=== PATIENT | female | born 1975 | race African-American/Black ===

== ENCOUNTER 2016-06-09 08:31 | Emergency (ER) ==
[2016-06-09] MEDS ORDERED: ASPIRIN PO STA (08:35)
--- NOTE | 2016-06-09 08:44 | EKG Report ---
Test Performed on : 06/09/2016 08:34:28 AM Test Reason : SR Blood Pressure : / mmHG Vent. Rate : 098 BPM Atrial Rate : 098 BPM P-R Int : 140 ms QRS Dur : 070 ms QT Int : 332 ms P-R-T Axes : 076 065 045 degrees QTc Int : 423 ms Normal sinus rhythm. Right atrial enlargement Borderline ECG When compared with ECG of 20-JAN-2016 07:58, Vent. rate has increased BY 40 BPM Criteria for Septal infarct are no longer present Unconfirmed Result
[2016-06-09 08:49] LABS: MANUAL DIFF NEEDED? NO
[2016-06-09 08:50] LABS: BASO% 0.7 % (0.0-0.8); EOS# 0.07 X1000 (0.0-0.7); EOS% 0.7 % (0.0-10.0); HEMATOCRIT 44.4 % (37.0-47.0); HEMOGLOBIN 15.3 g/dL (12.0-16.0); IMM GRAN# 0.02 X1000 (0.0-0.04); IMM GRAN% 0.2 % (0.0-0.5); LYMPH# 1.74 X1000 (1.2-3.4); LYMPH% 18.2 % (20.5-51.1); MCH 32.3 PG (27-31); MCHC 34.5 g/dL (33-37); MCV 93.9 FL (81-99); MONO# 0.71 X1000 (0.11-0.59); MONO% 7.4 % (1.7-9.3); NEUT% 72.8 % (42.2-75.2); PLT 256 X1000 (130-400); RBC 4.73 XMIL (4.2-5.4)
[2016-06-09] MEDS ORDERED: NS 1,000 ML IV ONE (08:59)
[2016-06-09] MEDS ORDERED: ZOFRAN IV ONE (08:59)
[2016-06-09] MEDS ORDERED: G.I. COCKTAIL PO ONE (08:59)
--- NOTE | 2016-06-09 09:07 | PROVIDER DOCUMENTATION ---
HPI-Abdominal Pain/GI Problem - General Chief Complaint: Cough Stated Complaint: CHEST PAIN Time Seen by Provider: 06/09/16 08:33 Source: patient Allergies/Adverse Reactions: Patient Allergies Allergy/AdvReac Type Severity Reaction Status Date / Time sumatriptan [From Imitrex] Allergy HIVES Verified 01/20/16 09:17 sumatriptan succinate * Allergy HIVES Verified 01/20/16 09:17 [From Imitrex] ketorolac tromethamine * AdvReac HIVES Verified 01/20/16 09:17 [From Toradol] Home Medications: Home Medication List Medication Instructions Recorded Confirmed Last Taken Type Azithromycin [Zithromax Z-Marty] 250 mg PO DIRECTED #1 pkg 01/20/16 Unknown Rx Benzonatate [Tessalon] 100 mg PO TID PRN PRN #20 capsule 01/20/16 Unknown Rx - History of Present Illness-ABD Nature of Presenting Problems: Patient is 40 y/o F that presents to the ER with epigastric pain that began 24 hours ago. She has associated N/V, cough, and chest pain with it. Patient reports symptoms worsen after eating. Denies cardiac history or recent travel. Abdominal Pain Onset Location: reports: epigastric Pain Radiation: reports: no radiation Quality of Pain: reports: aching, cramping Severity in ED: reports: moderate Onset/Duration: reports: abrupt, 24 hours ago Timing: reports: still present, intermittent Activities at Onset: reports: none Modifying Factors: worse with: eating Associated Symptoms: reports: chest pain, cough, nausea, shortness of breath, vomiting. denies: arm pain, back/neck pain, diarrhea, dizziness, EENT symptoms , fever/chills, genitourinary problems, headaches, rash Similar Symptoms Previously?: No Recently seen or treated by another doctor?: No Review of Systems - Adult - REVIEW OF SYSTEMS - ADULT Constitutional: denies: chills, fever Eyes: denies: decreased vision, blurred vision, double vision Ears, Nose, Mouth & Throat: denies: ear discharge, ear pain, sinus problem, throat pain, throat swelling Cardiovascular: reports: chest pain. denies: palpitations, syncope Respiratory: reports: cough, shortness of breath. denies: chronic cough, wheezing Gastrointestinal: reports: abdominal pain, nausea, vomiting. denies: constipation, diarrhea, rectal bleeding Genitourinary: reports: no symptoms reported Musculoskeletal: reports: no symptoms reported Integumentary: reports: no symptoms reported 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: no symptoms reported Psychiatric: reports: no symptoms reported Endocrine: reports: no symptoms reported Hematologic/Lymphatic: reports: no symptoms reported Allergic/Immunologic: reports: no symptoms reported All Other Systems: Reviewed and Negative Past History - Adult - PAST MEDICAL HISTORY-ADULT Review of Records: reports: Old Records Reviewed, Nursing Assessment Review, Medications Reviewed Respiratory: reports: asthma 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: headaches/migraines, other (Tully Palsy) Psychiatric: reports: anxiety - PRIOR SURGERIES/PROCEDURES Surgical/Procedure History: reports: cholecystectomy - IMMUNIZATION STATUS Childhood Immunizations: See Nurse Assessment Flu Vaccine: See Nurse Assessment - FAMILY HISTORY Family History: reviewed, not pertinent - SOCIAL HISTORY Smoking: cigarettes, less than 1 pack/day Living Situation: family Physical Exam-General - PHYSICAL EXAM-ADULT Initial Vital Signs Reviewed: Yes - CONSTITUTIONAL General Appearance: alert, no apparent distress - EYES Eyes: PERRL/EOMI, pink conjunctivae - HEAD, EARS, NOSE, MOUTH & THROAT HENMT: normocephalic/atraumatic, moist mucous membranes, normal ENT inspection - NECK Neck: non-tender, full range of motion, normal inspection - RESPIRATORY Respiratory: chest non-tender, lungs clear, normal breath sounds, no respiratory distress, no accessory muscle use - CARDIOVASCULAR Cardiovascular: regular rate, rhythm, no edema, no murmur - GASTROINTESTINAL (ABDOMEN) Abdominal Exam: normal bowel sounds, soft, no organomegaly, no pulsatile mass, tenderness (epigastric). negative: hepatomegaly, spleenomegaly - MUSCULOSKELETAL Extremity: normal range of motion, normal inspection, no pedal edema, no calf tenderness, normal capillary refill - SKIN Integumentary: normal color, warm/dry - NEUROLOGIC Neurologic: grossly normal, no motor/sensory deficits - PSYCHIATRIC Psych/Mental Status: normal mood/affect, normal thought content, normal thought process, oriented x 3 Progress - PLAN OF CARE/RESULTS Progress/Plan/Lab Results: plan of care-labs, cxr, ekg, meds Vital Signs Temp Pulse Resp BP Pulse Ox 06/09/16 11:32 98.2 F 61 18 116/80 98 06/09/16 10:45 87 20 105/77 98 06/09/16 09:34 65 20 134/88 98 06/09/16 09:14 67 22 140/106 97 06/09/16 08:35 98.6 F 76 22 131/101 98 sumatriptan [From Imitrex] Allergy (Verified 01/20/16 09:17) HIVES sumatriptan succinate * [From Imitrex] Allergy (Verified 01/20/16 09:17) HIVES ketorolac tromethamine * [From Toradol] Adverse Reaction (Verified 01/20/16 09: 17) HIVES Azithromycin [Zithromax Z-Marty] 250 mg PO DIRECTED #1 pkg 01/20/16 Benzonatate [Tessalon] 100 mg PO TID PRN PRN #20 capsule 01/20/16 Laboratory 06/09/16 06/09/16 06/09/16 11:29 10:45 10:45 WBC RBC Hgb Hct MCV MCH MCHC RDW Std Deviation Plt Count MPV Immature Gran % (Auto) Neut % (Auto) Lymph % (Auto) Crane % (Auto) Eos % (Auto) Baso % (Auto) Immature Gran # (Auto) Neut # (Auto) Lymph # (Auto) Crane # (Auto) Eos # (Auto) Baso # (Auto) PT INR APTT (Factor Assay) D-Dimer Sodium Potassium Chloride Carbon Dioxide Anion Gap BUN Creatinine Estimated GFR/1.73 m2 BUN/Creatinine Ratio Glucose Calculated Osmolality Calcium Magnesium Total Bilirubin AST ALT Alkaline Phosphatase Creatine Kinase 139 Troponin T < 0.010 Yan-L-Botwwajeren Pept Total Protein Albumin Globulin Albumin/Globulin Ratio Amylase Lipase Urine Source Urine Color Urine Clarity Urine pH Ur Specific [place] Urine Protein Urine Ketones Urine Blood Urine Nitrite Urine Bilirubin Urine Urobilinogen Urine Microscopic RBC Urine WBC Urine Microscopic WBC Ur Epithelial Cells Urine Glucose Urine Test Urine Opiates Screen Ur Oxycodone Screen Urine Methadone Screen Ur Barbituates Screen Ur Tricyclics Screen Ur Phencyclidine Scrn Ur Amphetamines Screen U Methamphetamines Scrn Urine MDMA Screen U Benzodiazepines Scrn Urine Cocaine Screen U Cannabinoids Screen Influenza A (Rapid) NEGATIVE Influenza B (Rapid) NEGATIVE 06/09/16 06/09/16 06/09/16 09:55 09:55 09:55 WBC RBC Hgb Hct MCV MCH MCHC RDW Std Deviation Plt Count MPV Immature Gran % (Auto) Neut % (Auto) Lymph % (Auto) Crane % (Auto) Eos % (Auto) Baso % (Auto) Immature Gran # (Auto) Neut # (Auto) Lymph # (Auto) Crane # (Auto) Eos # (Auto) Baso # (Auto) PT INR APTT (Factor Assay) D-Dimer Sodium Potassium Chloride Carbon Dioxide Anion Gap BUN Creatinine Estimated GFR/1.73 m2 BUN/Creatinine Ratio Glucose Calculated Osmolality Calcium Magnesium Total Bilirubin AST ALT Alkaline Phosphatase Creatine Kinase Troponin T [id number] Pept Total Protein Albumin Globulin Albumin/Globulin Ratio Amylase Lipase Urine Source CLEAN CATCH Urine Color MINOR Urine Clarity CLEAR Urine pH 6.0 Ur Specific [place] 1.015 Urine Protein TRACE A Urine Ketones TRACE Urine Blood 4+ Urine Nitrite NEGATIVE Urine Bilirubin NEGATIVE Urine Urobilinogen NORMAL Urine Microscopic RBC 10-20 A Urine WBC TRACE A Urine Microscopic WBC <10 Ur Epithelial Cells >10 A Urine Glucose NEGATIVE Urine Test NEGATIVE Urine Opiates Screen NONE DETECTED Ur Oxycodone Screen NONE DETECTED Urine Methadone Screen NONE DETECTED Ur Barbituates Screen NONE DETECTED Ur Tricyclics Screen NONE DETECTED Ur Phencyclidine Scrn NONE DETECTED Ur Amphetamines Screen NONE DETECTED U Methamphetamines Scrn NONE DETECTED Urine MDMA Screen NONE DETECTED U Benzodiazepines Scrn PRESUMPTIVE POSITIVE A Urine Cocaine Screen NONE DETECTED U Cannabinoids Screen PRESUMPTIVE POSITIVE A Influenza A (Rapid) Influenza B (Rapid) 06/09/16 06/09/16 06/09/16 08:46 08:46 08:46 WBC 9.54 RBC 4.73 Hgb 15.3 Hct 44.4 MCV 93.9 MCH 32.3 H MCHC 34.5 RDW Std Deviation 13.9 Plt Count 256 MPV 10.0 Immature Gran % (Auto) 0.2 Neut % (Auto) 72.8 Lymph % (Auto) 18.2 L Crane % (Auto) 7.4 Eos % (Auto) 0.7 Baso % (Auto) 0.7 Immature Gran # (Auto) 0.02 Neut # (Auto) 6.93 H Lymph # (Auto) 1.74 Crane # (Auto) 0.71 H Eos # (Auto) 0.07 Baso # (Auto) 0.07 PT 13.6 INR 1.01 APTT (Factor Assay) 27.4 D-Dimer < 0.22 L Sodium Potassium Chloride Carbon Dioxide Anion Gap BUN Creatinine Estimated GFR/1.73 m2 BUN/Creatinine Ratio Glucose Calculated Osmolality Calcium Magnesium Total Bilirubin AST ALT Alkaline Phosphatase Creatine Kinase Troponin T [id number]-Qjcsweaowgh Pept Total Protein Albumin Globulin Albumin/Globulin Ratio Amylase 39 Lipase 22 Urine Source Urine Color Urine Clarity Urine pH Ur Specific [place] Urine Protein Urine Ketones Urine Blood Urine Nitrite Urine Bilirubin Urine Urobilinogen Urine Microscopic RBC Urine WBC Urine Microscopic WBC Ur Epithelial Cells Urine Glucose Urine Test Urine Opiates Screen Ur Oxycodone Screen Urine Methadone Screen Ur Barbituates Screen Ur Tricyclics Screen Ur Phencyclidine Scrn Ur Amphetamines Screen U Methamphetamines Scrn Urine MDMA Screen U Benzodiazepines Scrn Urine Cocaine Screen U Cannabinoids Screen Influenza A (Rapid) Influenza B (Rapid) 06/09/16 06/09/16 06/09/16 08:46 08:46 08:46 WBC RBC Hgb Hct MCV MCH MCHC RDW Std Deviation Plt Count MPV Immature Gran % (Auto) Neut % (Auto) Lymph % (Auto) Crane % (Auto) Eos % (Auto) Baso % (Auto) Immature Gran # (Auto) Neut # (Auto) Lymph # (Auto) Crane # (Auto) Eos # (Auto) Baso # (Auto) PT INR APTT (Factor Assay) D-Dimer Sodium 136 Potassium 3.1 L Chloride 99 Carbon Dioxide 22 L Anion Gap 15 BUN 7 L Creatinine 0.8 Estimated GFR/1.73 m2 > 60 BUN/Creatinine Ratio 9 Glucose 146 H Calculated Osmolality 273 Calcium 9.1 Magnesium 2.0 Total Bilirubin 0.90 AST 24 ALT 34 Alkaline Phosphatase 63 Creatine Kinase 146 Troponin T < 0.010 Rok-I-Fjyxdweppnn Pept 13 Total Protein 7.6 Albumin 4.6 Globulin 3.0 Albumin/Globulin Ratio 2.0 Amylase Lipase Urine Source Urine Color Urine Clarity Urine pH Ur Specific [place] Urine Protein Urine Ketones Urine Blood Urine Nitrite Urine Bilirubin Urine Urobilinogen Urine Microscopic RBC Urine WBC Urine Microscopic WBC Ur Epithelial Cells Urine Glucose Urine Test Urine Opiates Screen Ur Oxycodone Screen Urine Methadone Screen Ur Barbituates Screen Ur Tricyclics Screen Ur Phencyclidine Scrn Ur Amphetamines Screen U Methamphetamines Scrn Urine MDMA Screen U Benzodiazepines Scrn Urine Cocaine Screen U Cannabinoids Screen Influenza A (Rapid) Influenza B (Rapid) Orders Category Date Time Status Cardiac Monitoring DIRECTED Care 06/09/16 08:36 Active Oxygen Therapy- ED Nursing DIRECTED Care 06/09/16 08:36 Active Repeat Vital Signs .Temp Care 06/09/16 11:28 Active Saline Loc NOW Care 06/09/16 08:36 Active CHEST-PORTABLE [RAD] Stat Exams 06/09/16 08:35 Completed AMYLASE [CHEM] Stat Lab 06/09/16 08:46 Completed CBC WITH ELECTRONIC DIFF [HEME] Stat Lab 06/09/16 08:46 Completed CK PROFILE [SP CHEM] Stat Lab 06/09/16 08:46 Completed CK PROFILE [SP CHEM] Stat Lab 06/09/16 10:45 Completed COMPREHENSIVE METABOLIC PANEL [CHEM] Stat Lab 06/09/16 08:46 Com[address] D-DIMER PL [COAG] Stat Lab 06/09/16 08:[address] Stat Lab 06/09/16 11:29 Completed LIPASE [CHEM] Stat Lab 06/09/16 08:46 Completed MAGNESIUM [CHEM] Stat Lab 06/09/16 08:46 Completed TEST-URINE [PREG] Stat Lab 06/09/16 09:55 Completed PRO B-NATRIURETIC PEPTIDE Stat Lab 06/09/16 08:46 Completed [address]OTIME WITH INR PL [COAG] Stat Lab 06/09/16 08:[address] [COAG] Stat Lab 06/09/16 08:46 Completed TROPONIN T Stat Lab 06/09/16 08:46 Completed TROPONIN T Stat Lab 06/09/16 10:[address] W/POSS RFLX CULT [URINALYSIS] Stat Lab 06/09/16 09:55 Completed URINE DRUG SCREEN PL Stat Lab 06/09/16 09:55 Completed 0.9% Sodium Chloride Inj [Ns] 1,000 ml Med 06/09/16 08:59 Discontinued IV 999 mls/hr Aspirin Med 06/09/16 08:35 Discontinued 325 mg PO STAT STA CefTRIAXONE 1 GM/NS [Rocephin 1 gm/Ns] 50 ml Med 06/09/16 11:29 Discontinued IV NOW Lido/Sanchez Alk/Al&mg Hydrox [G.i. Cocktail] Med 06/09/16 08:59 Discontinued 30 ml PO NOW ONE Ondansetron [Zofran] Med 06/09/16 08:59 Discontinued 8 mg IV NOW ONE Potassium Chloride E.r. [Klor-Con] Med 06/09/16 09:47 Discontinued 60 meq PO NOW ONE EKG [EKG] Stat Ther 06/09/16 08:36 Draft pt will be d/c home f/u with pcp, rx given, pt was clinically stable, pt understood results and instructions. - REASSESSMENT Reassessment #1 Time Reassessed: 11:27 Status: improving Reassessment Comment: n/v and pain is gone, feels chills flu swab ordered - EKG 1 Time of EKG reading by physician:: 08:34 EKG Read and Signed by:: Adalberto Robles EKG Interpretation (*Must complete 3 of following elements*): Abnormal Rate: 98 Rhythm: NSR Lenore: normal QRS: normal IN Interval: normal ST Wave: normal Comments: GERARDO - XRAY 1 XRAY Study: Chest Impression: Normal XRAY Interpretation: negative Departure - Departure Time of Disposition Order: 12:17 DIAGNOSIS: Atypical chest pain Nausea & vomiting Qualifiers: Vomiting type: bilious vomiting Qualified Code(s): R11.14 - Bilious vomiting UTI (urinary tract infection) Qualifiers: Urinary tract infection type: acute cystitis Hematuria presence: without hematuria Qualified Code(s): N30.00 - Acute cystitis without hematuria Disposition: HOME 01 Certified Medical Emergency: Emergent Condition: Stable Additional Instructions: ED Follow Up Instructions: You have been treated by a care provider in the Emergency Department. These instructions are being provided to you so you can have an understanding of how to care for yourself upon discharge. Upon discharge from the Emergency Department, you are responsible for making arrangements for follow-up care by a physician of your choice. Take all prescribed medications as directed. Return to the Emergency Department immediately for any new or worsening symptoms. You may call the Physician Referral phone number at [phone] to obtain a list of Physicians who are taking new patients. Referrals: None,PCP [Primary Care Provider] - Kaveh Barros MD [STAFF PHYSICIAN] - Call for Appoint. 1-2days Instructions: Urinary Tract Infection, [id number], Nonspecific Chest Pain, Nausea, Adult Attestation - Scribe Verification/Attestation Scribe:: Austen Alberto Acting as Scribe for:: Adalberto Robles Scribe documention review:: This chart was documented by a scribe and accurately reflects the service the provider performed and the decisions made by the provider. Physician Attestation - Physician Attestation I, the provider, attest to the following statement:: Adalberto Robles Physician documentation Attestation:: This documentation recorded by the scribe accurately reflects the service I personally performed and the decisions made by me.
[2016-06-09 09:11] LABS: INR 1.01 (0.86-1.15); PROTIME 13.6 Seconds (12.1-15.5)
[2016-06-09 09:12] LABS: PTT PL 27.4 Seconds (22.6-43.9)
[2016-06-09 09:20] LABS: AGAP 15; ALBUMIN 4.6 g/dL (3.5-5.0); ALKALINE PHOSPHATASE 63 U/L (32-104); BUN 7 mg/dL (8-22); CHLORIDE 99 mmol/L (98-107); CK PROFILE 146 U/L (24-173); COSMO 273; GOT 24 U/L (10-30); GPT 34 U/L (10-36); POTASSIUM 3.1 mmol/L (3.5-5.1); SODIUM 136 mmol/L (136-145); TCO2 22 mmol/L (25-35); TOTAL PROTEIN 7.6 g/dL (6.3-8.3)
--- NOTE | 2016-06-09 09:20 | Diag Imaging Result Document ---
PROCEDURE NAME: CHEST-PORTABLE - 06/09/2016 CHEST, 2 VIEWS: COMPARISON: 01/20/2016. FINDINGS: Heart size is normal. The lungs appear clear. There is no pleural effusion or pneumothorax seen. IMPRESSION: No evidence of acute disease.
[2016-06-09 09:38] LABS: CALCIUM 9.1 mg/dL (8.8-10.2)
[2016-06-09 09:39] LABS: AMYLASE 39 U/L (20-200); LIPASE 22 U/L (13-60)
[2016-06-09] MEDS ORDERED: KLOR-CON PO ONE (09:47)
[2016-06-09 11:01] LABS: URINE CULTURE PL NEEDED? NO; URINE SOURCE CLEAN CATCH
[2016-06-09 11:05] LABS: BILIRUBIN URINE NEGATIVE (NEGATIVE); BLOOD URINE 4+ (NEGATIVE); CLARITY CLEAR (CLEAR); COLOR AMBER; GLUCOSE URINE NEGATIVE (NEGATIVE); LEUKOCYTES URINE TRACE (NEGATIVE); NITRITE URINE NEGATIVE (NEGATIVE); PROTEIN URINE TRACE mg/dL (NEGATIVE); SP GRAVITY URINE 1.015; UROBILINOGEN URINE NORMAL
[2016-06-09 11:10] LABS: UR AMPHETAMINES QUAL NONE DETECTED (NONE DETECT); UR BARBITUATES QUAL NONE DETECTED (NONE DETECT); UR BENZODIAZEPIN QUAL PRESUMPTIVE POSITIVE (NONE DETECT); UR CANNABINOIDS QUAL PRESUMPTIVE POSITIVE (NONE DETECT); UR COCAINE QUAL NONE DETECTED (NONE DETECT); UR MDMA QUAL NONE DETECTED (NONE DETECT); UR METHADONE QUAL NONE DETECTED (NONE DETECT); UR METHAMPHETAMINE QUAL NONE DETECTED (NONE DETECT); UR OPIATES QUAL NONE DETECTED (NONE DETECT); UR OXYCODONE QUAL NONE DETECTED (NONE DETECT); UR PCP QUAL NONE DETECTED (NONE DETECT); UR TCA QUAL NONE DETECTED (NONE DETECT)
[2016-06-09 11:15] LABS: URINE EPITHELIAL CELLS >10 /HPF (<10); URINE WBC <10 /HPF (<10)
[2016-06-09] MEDS ORDERED: ROCEPHIN 1 GM/NS 50 ML IV ONE (11:29)
[2016-06-09 12:35] VITALS: BP 114/77
== END 2016-06-09 12:41 | disposition home or self-care (01) ==
LOC: P.ED 08:31
DX: N30.00 Acute cystitis without hematuria (principal); R07.9 Chest pain, unspecified; R11.14 Bilious vomiting; R94.31 Abnormal electrocardiogram [ECG] [EKG]; R05 Cough; R10.13 Epigastric pain; R11.2 Nausea with vomiting, unspecified; R06.02 Shortness of breath; R10.816 Epigastric abdominal tenderness; F17.210 Nicotine dependence, cigarettes, uncomplicated
CPT/HCPCS: 36415; 71010; 80053; 80305; 81001; 81025; 82150; 82550; 83690; 83735; 83880; 84484; 85025; 85379; 85610; 85730; 87804; 93005; 96361; 96365; 96375; J0696; J2405; J7030